=== PATIENT | female | born 1985 | race Caucasian/White ===

== ENCOUNTER 2017-05-21 11:05 | Emergency (ER) | payer MEDICAID, OTHER ==
[2017-05-21 11:14] VITALS: BP 118/71; PULSE 98; RESP 18; TEMP 98.6; O2SAT 97
--- NOTE | 2017-05-21 11:59 | PD ---
HPI Chief Complaint: Cold / Flu Symptoms Time Seen by Provider: 11:25 Travel History International Travel<30 days: No Contact w/Intl Traveler<30days: No Traveled to known affect area: No History of Present Illness HPI Patient 32-year-old female presents emergency department with her daughter for evaluation of cough congestion symptoms. Her daughter is being admitted for RSV bronchiolitis and already has another child who was admitted to the hospital for the same. Mom states she has noted some mild cough and congestion as well and would like to be seen. Mother is a smoker but smokes away from the children. She is noticed a dry cough for the past few days, gradually worsening , context as above, not associated fevers nausea vomiting diarrhea or constipation PFSH Past Medical History Anxiety: Yes Diminished Hearing: No Immunizations Current: No Tetanus Vaccination: < 5 Years Influenza Vaccination: No ?: Not Social History Alcohol Use: Yes (occ) Tobacco Use: Yes ("I quit as of yesterday ") Substance Use: Yes (pot) Allergies-Medications (Allergen,Severity, Reaction): Coded Allergies: hydrocodone (Verified Allergy, Unknown, 05/21/17) Reported Meds & Prescriptions Reported Meds & Active Scripts Active Prednisone 20 Mg Tab 60 Mg PO DAILY 5 Days Proair Hfa 8.5 GM Inh (Albuterol Sulfate) 90 Mcg/Act Aer 1 Puff INH Q4H PRN 108 mcg/actuation Review of Systems Except as stated in HPI: all other systems reviewed are Neg Physical Exam Narrative GENERAL: Well-nourished, well-developed patient. SKIN: Focused skin assessment warm/dry. HEAD: Normocephalic. EYES: No scleral icterus. No injection or drainage. ENT: TMs clear bilaterally, oropharynx clear moist. NECK: Supple, trachea midline. No JVD or lymphadenopathy. CARDIOVASCULAR: Regular rate and rhythm without murmurs, gallops, or rubs. RESPIRATORY: Breath sounds equal bilaterally. No accessory muscle use. No wheezes rales or rhonchi GASTROINTESTINAL: Abdomen soft, non-tender, nondistended. MUSCULOSKELETAL: No cyanosis, or edema. BACK: Nontender without obvious deformity. No CVA tenderness. Data Data Last Documented VS Vital Signs Date Time Temp Pulse Resp B/P (MAP) Pulse Ox O2 Delivery O2 Flow Rate FiO2 05/21/17 13:29 87 18 99 4/14/18 11:31 Nasal Cannula 05/21/17 11:14 98.6 118/71 (87) Orders Orders Chest, Pa & Lat (05/21/17 ) Albuterol Hfa Inh (Proair Hfa Inh) (05/21/17 12:30) Ed Discharge Order (05/21/17 12:26) MDM Medical Decision Making Medical Screen Exam Complete: Yes Emergency Medical Condition: Yes Differential Diagnosis Bronchitis, pneumonia, URI Narrative Course Given history considering a viral URI, however given her smoking history of chest x-ray indicated rule out pneumonia, chest x-ray shows no obvious infiltrate or effusion. Discussed with the patient who appears well that RSV is usually affecting young children more than adults, she is stable for discharge at this time, discussed symptomatic management return to ED criteria. Diagnosis Primary Impression: Bronchitis Patient Instructions: Acute Bronchitis (DC), General Instructions Med/Other Pt SpecificInfo: Prescription(s) given Scripts Prednisone (Prednisone) 20 Mg Tab 60 MG PO DAILY for 5 Days, #15 TAB 0 Refills Prov: Martin Yusuf MD 05/21/17 Albuterol 8.5 GM Inh (Proair Hfa 8.5 GM Inh) 90 Mcg/Act Aer 1 PUFF INH Q4H Y for SHORTNESS OF BREATH, #1 INHALER 0 Refills 108 mcg/actuation Prov: Martin Yusuf MD 05/21/17 Disposition: 01 DISCHARGE HOME Condition: Stable Martin Yusuf MD May 21, 2017 11:59
--- NOTE | 2017-05-21 12:12 | RADRPT ---
EXAM DATE/TIME: 05/21/2017 11:59 [facility] COMPARISON: No previous studies available for comparison. INDICATIONS : Patient complains of cough, congestion, and shortness of breath. MEDICAL HISTORY : None. SURGICAL HISTORY : None. ENCOUNTER: Initial ACUITY: 3 days PAIN SCORE: 0/10 LOCATION: chest FINDINGS: PA and lateral views of the chest demonstrate the lungs to be symmetrically aerated without evidence of mass, infiltrate or effusion. The cardiomediastinal contours are unremarkable. Osseous structure s are intact. CONCLUSION: No acute disease. Moe Chopra MD FACR on May 21, 2017 at 12:10 Board Certified Radiologist. This report was verified electronically.
[2017-05-21] MEDS ORDERED: ALBUAER3 INH (12:26)
[2017-05-21] MEDS ORDERED: PRED20 PO (12:26)
[2017-05-21] MEDS ORDERED: ALBUTEROL SULFATE 90 MCG/ACT HFA 8 GM INHALER INH ONE (12:30)
== END 2017-05-21 12:32 | disposition home or self-care (01) ==
LOC: NEPA 11:05
DX: J40 Bronchitis, not specified as acute or chronic (principal); F17.210 Nicotine dependence, cigarettes, uncomplicated
CPT/HCPCS: 71046; 99283

== ENCOUNTER 2017-07-24 23:31 | Emergency (ER) | payer MEDICAID ==
[~2017-07-24 23:31] MED LIST: ALBUAER3 INH; PRED20 PO
[2017-07-24 23:35] VITALS: BP 119/76; PULSE 83; RESP 18; TEMP 98.3; O2SAT 99
[2017-07-24] MEDS ORDERED: AMOXICILLIN (TRIHYDRATE) 500 MG CAP PO ONE (23:45)
[2017-07-24] MEDS ORDERED: AMOX500T PO (23:52)
[2017-07-24] MEDS ORDERED: VENTAER INH (23:52)
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
== END 2017-07-25 00:07 | disposition home or self-care (01) ==
LOC: NEPD 23:31
DX: I88.9 Nonspecific lymphadenitis, unspecified (principal); H92.01 Otalgia, right ear; F41.9 Anxiety disorder, unspecified; F17.200 Nicotine dependence, unspecified, uncomplicated; Z86.73 Personal history of transient ischemic attack (TIA), and cerebral infarction without residual deficits
CPT/HCPCS: 99283